=== PATIENT | male | born 1990 | race Caucasian/White ===

== ENCOUNTER → 2016-08-07 | Outpatient (CLI) | payer OTHER ==
--- NOTE | 2016-08-07 17:28 | DIAGNOSTIC IMAGING REPORT ---
AP STANDING VIEW OF BOTH KNEES; 2 VIEWS RIGHT KNEE CLINICAL HISTORY: Medial right knee pain. FINDINGS: An AP standing view both knees with lateral and sunrise views of the right knee are obtained. No prior studies are available for comparison at the time of dictation. The skeletal structures are well mineralized. No fracture is seen. The joint spaces of the right knee are well-maintained. A small joint effusion is identified. The overlying soft tissues are within normal limits. Survey images of the left knee on the frontal view show no abnormality. IMPRESSION: Joint effusion with no radiographic evidence of right knee fracture. Electronically signed by: Da Lloyd M.D. 08/07/2016 5:26 PM Dictated Date/Time: 08/07/2016 5:25 PM
== END | disposition home or self-care (01) ==
LOC: C.RDSM 16:20
PROVIDERS: ATTEND Family Medicine
DX: M25.561 Pain in right knee (principal); M25.461 Effusion, right knee